=== PATIENT | female | born 1995 | race Caucasian/White ===

== ENCOUNTER 2018-11-21 13:01 | Emergency (ER) | payer OTHER ==
[2018-11-21 13:11] VITALS: RESP 16; TEMP 98.5
--- NOTE | 2018-11-21 14:47 | XR ---
EXAMINATION TYPE: XR tibia fibula LT DATE OF EXAM: 11/21/2018 COMPARISON: NONE HISTORY: Pain TECHNIQUE: Two views are submitted. FINDINGS: The osseous structures are intact. The joint spaces are preserved. IMPRESSION: 1. No acute osseous abnormality.
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
[2018-11-21 15:51] VITALS: BP 125/75; PULSE 70
== END 2018-11-21 15:40 | disposition home or self-care (01) ==
LOC: EC 13:01
DX: S80.12XA Contusion of left lower leg, initial encounter (principal); V49.40XA Driver injured in collision with unspecified motor vehicles in traffic accident, initial encounter; Y92.410 Unspecified street and highway as the place of occurrence of the external cause; Y93.89 Activity, other specified
CPT/HCPCS: 70450; 72125; 81025; 99284

== ENCOUNTER 2022-01-23 02:30 | Emergency (ER) | payer SELFPAY ==
[2022-01-23 02:54] VITALS: BP 108/68; PULSE 112; RESP 18; TEMP 98.6
--- NOTE | 2022-01-23 03:17 | XR ---
EXAMINATION TYPE: XR foot complete LT DATE OF EXAM: 01/23/2022 COMPARISON: NONE HISTORY: Pain TECHNIQUE: 3 views FINDINGS: The metatarsals are intact. The toes appear intact. No evidence of fracture nor dislocation . The middle toe is intact. IMPRESSION: Negative left foot exam. No fracture.
[2022-01-23] MEDS ORDERED: ACET/COD 300 MG/30 MG STARTER PACK 6 TAB BTL PO STA (03:34)
[2022-01-23] MEDS ORDERED: CLINDAMYCIN 150 MG CAP PO STA (03:34)
[2022-01-23] MEDS ORDERED: IBUPROFEN 600 MG STARTER PACK 4 TAB BTL PO STA (03:34)
--- NOTE | 2022-01-23 03:45 | ED ---
Extremity Problem HPI - General Chief complaint: Extremity Problem,Nontraumatic Stated complaint: left foot pain Time Seen by Provider: 01/23/22 03:03 Source: patient, RN notes reviewed Mode of arrival: ambulatory Limitations: no limitations - History of Present Illness Initial comments: This is a pleasant 26-year-old female who comes to the ER complaining of a recurrent infection to her left third toe. Since she went to a round of antibiotics about 3 weeks ago. Patient states the toe is now worsening again. She is describing some redness to the distal aspect of the toe. Patient was concerned because she started having a bit of a sore throat and some body aches earlier in the day and thought it might be related to the toe. Patient denying any shortness of breath or chest pain. No abdominal pain. No changes in urination or bowel movements. Patient states she did have one episode of vomiting. No current nausea. Patient has no history of immunosuppression. No diabetes. Patient states she was seen and assessed by a filter tip inspector for the toe previously. - Related Data Previous Rx's Medication Instructions Recorded Clindamycin [Cleocin] 450 mg PO Q8H #90 capsule 01/23/22 Ibuprofen [Motrin] 600 mg PO Q8HR PRN #30 tab 01/23/22 traMADol HCl [Ultram] 50 mg PO Q6H PRN #12 tab 01/23/22 Allergies Allergy/AdvReac Type Severity Reaction Status Date / Time No Known Allergies Allergy Verified 01/23/22 02:50 Review of Systems ROS Statement: Those systems with pertinent positive or pertinent negative responses have been documented in the HPI. ROS Other: All systems not noted in ROS Statement are negative. Past Medical History Past Medical History: No Reported History History of Any Multi-Drug Resistant Organisms: None Reported Past Surgical History: Tonsillectomy Past Psychological History: No Psychological Hx Reported Smoking Status: Never smoker Past Alcohol Use History: Occasional Past Drug Use History: None Reported General Exam Limitations: no limitations General appearance: alert, in no apparent distress Head exam: Present: atraumatic, normocephalic, normal inspection Eye exam: Present: normal appearance, PERRL, EOMI. Absent: scleral icterus, conjunctival injection, periorbital swelling ENT exam: Present: normal exam, mucous membranes moist Neck exam: Present: normal inspection. Absent: tenderness, meningismus, lymphadenopathy Respiratory exam: Present: normal lung sounds bilaterally. Absent: respiratory distress, wheezes, rales, rhonchi, stridor, chest wall tenderness, accessory muscle use Cardiovascular Exam: Present: regular rate (Heart rate 92/m as I'm assessing the patient.), normal rhythm, normal heart sounds. Absent: systolic murmur, diastolic murmur, rubs, gallop, clicks GI/Abdominal exam: Present: soft, normal bowel sounds. Absent: distended, tenderness, guarding, rebound, rigid Extremities exam: Present: full ROM, tenderness (Patient has minimal tenderness at distal aspect of the left third toe. Patient has some erythema near the lateral eponychial fold. No fluctuance. No lymphangitis. Erythema does not progress proximally past the toe. No evidence of foreign body or wound.), normal capillary refill. Absent: pedal edema, joint swelling, calf tenderness Back exam: Present: normal inspection. Absent: rash noted Neurological exam: Present: alert, oriented X3, CN II-XII intact Psychiatric exam: Present: normal affect, normal mood Skin exam: Present: warm, dry, intact, normal color, erythema (As above). Absent: rash, vesicles, petechiae, mottled, abrasion Course Vital Signs 01/23/22 02:50 Temperature 98.6 F Pulse Rate 112 H Respiratory 18 Rate Blood Pressure 108/68 O2 Sat by Pulse 97 Oximetry Medical Decision Making - Medical Decision Making Given the patient's presentation. I suspect the patient has developed mild viral syndrome. Patient being seen during an outbreak of influenza, RSV, and COVID-19. Will order viral testing. Patient's left third toe paronychia is very limited. This very unlikely to be causing any systemic symptoms. Patient's vital signs are stable, patient afebrile at the time I'm assessing her. Heart rate 92. Discussed treatment plan in detail with the patient. Discussed antibiotic therapy and follow-up with a filter tip inspector. Patient is already established with a filter tip inspector. I'm going to discharge the patient with the viral testing pending. Patient can call back for the results. Patient given pain medication for the left third toe. Patient was told to return to the ER for any signs or symptoms worsen. Told to return immediately if any other problems arise. All questions answered. Treatment plan discussed. Patient in agreement Every effort has been made to ensure accuracy of this dictation. However, due to the limitations of electronic medical records and dictation devices, errors in charting still occur. Supervising physician Dr. Miller - Radiology Data Radiology results: report reviewed, image reviewed Independent interpretation of the left foot x-ray by me reveals no acute pathology. Disposition Clinical Impression: Paronychia of third toe, left, Acute viral syndrome Disposition: HOME SELF-CARE Condition: Good Instructions (If sedation given, give patient instructions): Paronychia (ED), Viral Syndrome (ED) Additional Instructions: Take antibiotics as directed. Soak the foot in warm soapy water for 10-15 minutes at a time 4 times daily. Call at 8 AM to schedule follow-up appointment with a filter tip inspector. You can call back here for results of the viral swab testing Is patient prescribed a controlled substance at d/c from ED?: No Referrals: None,Stated [Primary Care Provider] - 1-2 days Time of Disposition: 03:40
== END 2022-01-23 03:54 | disposition home or self-care (01) ==
LOC: EC 02:30
DX: L03.032 Cellulitis of left toe (principal); B34.9 Viral infection, unspecified; Z20.822 Contact with and (suspected) exposure to COVID-19
CPT/HCPCS: 87636; 99283

== ENCOUNTER → 2022-09-27 | Outpatient (CLI) | payer BC ==
[2022-09-28 02:21] LABS: Basophils # (A) 0.05 X 10*3/uL (0.00-0.10); Basophils % (A) 0.7 %; Eosinophils # (A) 0.19 X 10*3/uL (0.04-0.35); Eosinophils % (A) 2.7 %; HCT 41.6 % (37.2-46.3); HGB 12.7 d/dL (12.0-15.0); Lymphocytes # (A) 1.65 X 10*3/uL (0.90-5.00); Lymphocytes % (A) 23.3 %; MCH 24.4 pg (27.0-32.0); MCHC 30.5 d/dL (32.0-37.0); MCV 79.8 FL (80.0-97.0); Mean Platelet Volume 12.2 FL (9.5-12.2); Monocytes # (A) 0.62 X 10*3/uL (0.20-1.00); Monocytes % (A) 8.8 %; NRBC Per 100 WBC 0 X 10*3/uL (0.00-0.01); Neutrophils # (A) 4.54 X 10*3/uL (1.80-7.70); Neutrophils % (A) 64.2 %; Platelet Count 248 X 10*3/uL (140-440); RBC 5.21 X 10*6/uL (4.10-5.20); WBC 7.07 X 10*3/uL (4.50-10.00)
[2022-09-28 03:16] LABS: Erythrocyte Sedimentation Rate 10 mm/Hr (0-20)
[2022-09-28 03:38] LABS: ALT 14 U/L (8-44); AST 19 U/L (13-35); Albumin 4.6 d/dL (3.8-4.9); Albumin/Globulin Ratio 1.84 Ratio (1.60-3.17); Alkaline Phosphatase 71 U/L (41-126); BUN/Creat Ratio 19.33 Ratio (12.00-20.00); Blood Urea Nitrogen 11.6 mg/dL (9.0-27.0); Calcium 9.5 mg/dL (8.7-10.3); Carbon Dioxide 23.4 mmol/L (21.6-31.8); Chloride 105 mmol/L (96-109); Globulin 2.5 d/dL (1.6-3.3); Glucose 72 mg/dL (70-110); Potassium 4.3 mmol/L (3.5-5.5); Rheumatoid Factor, Qnt <15 IU/mL (0-15); Sodium 141 mmol/L (135-145); Total Bilirubin 0.3 mg/dL (0.3-1.2); Total Protein 7.1 d/dL (6.2-8.2)
[2022-09-28 03:54] LABS: Gliadin AB IgA, Deaminated Negative (Negative); Gliadin AB IgA, Unit <0.5 U/mL; Gliadin AB IgG, Deaminated POSITIVE; Gliadin AB IgG, Unit 19.3 U/mL
[2022-09-28 05:59] LABS: Cyclic Citrull Pep IgG Unit <1.5 U/mL (<=3.9); Cyclic Citrullinated Pep IgG Negative
[2022-09-28 10:18] LABS: HLA B27 NEGATIVE
== END | disposition home or self-care (01) ==
LOC: LABWHC1 15:46
PROVIDERS: ATTEND Internal Medicine Rheumatology
DX: M79.89 Other specified soft tissue disorders (principal); M79.673 Pain in unspecified foot; M54.9 Dorsalgia, unspecified; M25.60 Stiffness of unspecified joint, not elsewhere classified
CPT/HCPCS: 36415; 80053; 83516; 83520; 85025; 85652; 86038; 86140; 86200; 86431; 86812

== ENCOUNTER 2024-02-10 02:38 | Emergency (ER) | payer BC ==
[2024-02-10 03:38] VITALS: BP 131/91; PULSE 80; RESP 18; TEMP 98.5
--- NOTE | 2024-02-10 03:43 | ED ---
Head Injury HPI - General Chief complaint: Head Injury Stated complaint: Head Injury, Headache Source: patient Mode of arrival: ambulatory - History of Present Illness Initial comments: Patient is a 28-year-old woman here to have evaluation for head injury on Sunday she had a stack of pans fall onto her head while she was working. The patient had no loss consciousness. Since that time she has had headache and some nausea. She denies any neurologic symptoms. MD Complaint: head injury -: days(s) Mechanism of Injury: work related injury Location: temporal Loss of Consciousness: no Previous Trauma to this Area: No Place: work Radiation: none Severity: moderate Quality: dull Consistency: constant Provoking factors: none known Associated Symptoms: nausea - Related Data Previous Rx's Medication Instructions Recorded Clindamycin [Cleocin] 450 mg PO Q8H #90 capsule 01/23/22 Ibuprofen [Motrin] 600 mg PO Q8HR PRN #30 tab 01/23/22 traMADol HCl [Ultram] 50 mg PO Q6H PRN #12 tab 01/23/22 Ondansetron Odt [Zofran ODT] 4 mg PO Q8HR PRN #10 tab 02/10/24 Allergies/Adverse reactions: Allergies Allergy/AdvReac Type Severity Reaction Status Date / Time No Known Allergies Allergy Verified 02/10/24 03:38 Review of Systems ROS Statement: Those systems with pertinent positive or pertinent negative responses have been documented in the HPI. ROS Other: All systems not noted in ROS Statement are negative. Constitutional: Denies: fever, weakness Eyes: Denies: vision change ENT: Denies: hearing loss Respiratory: Denies: dyspnea Cardiovascular: Denies: chest pain, syncope Gastrointestinal: Reports: nausea. Denies: abdominal pain, vomiting Genitourinary: Denies: dysuria, hematuria Musculoskeletal: Denies: back pain Neurological: Reports: headache. Denies: weakness, numbness, confusion, vertigo Hematological/Lymphatic: Denies: easy bleeding Past Medical History Past Medical History: No Reported History History of Any Multi-Drug Resistant Organisms: None Reported Past Surgical History: Tonsillectomy Past Psychological History: No Psychological Hx Reported Smoking Status: Never smoker Past Alcohol Use History: Occasional Past Drug Use History: None Reported General Exam General appearance: alert, in no apparent distress Head exam: Present: atraumatic, normocephalic Eye exam: Present: normal appearance, PERRL, EOMI. Absent: scleral icterus, conjunctival injection, nystagmus ENT exam: Present: normal oropharynx, mucous membranes moist, TM's normal bilaterally, normal external ear exam Neck exam: Present: normal inspection, full ROM. Absent: tenderness, meningismus Respiratory exam: Present: normal lung sounds bilaterally Cardiovascular Exam: Present: regular rate, normal rhythm Neurological exam: Present: alert, oriented X3, CN II-XII intact. Absent: motor sensory deficit Skin exam: Present: warm, dry, intact, normal color. Absent: rash Course Vital Signs 02/10/24 03:34 Temperature 98.5 F Pulse Rate 80 Respiratory 18 Rate Blood Pressure 131/91 O2 Sat by Pulse 100 Oximetry Medical Decision Making - Medical Decision Making Was pt. sent in by a medical professional or institution (SARAH Willams, TECHNICAL SUPPORT ANALYST, urgent care, hospital, or [facility]...) When possible be specific @ -[No] Did you speak to anyone other than the patient for history (EMS, parent, family, police, friend...)? What history was obtained from this source @ -[No] Did you review nursing and triage notes (agree or disagree)? Why? @ -[I reviewed and agree with nursing and triage notes] Were old charts reviewed (outside hosp., previous admission, EMS record, old EKG, old radiological studies, urgent care reports/EKG's, [facility] records)? Report findings @ -[No old charts were reviewed] Differential Diagnosis (chest pain, altered mental status, abdominal pain women, abdominal pain men, vaginal bleeding, weakness, fever, dyspnea, syncope, headache, dizziness, GI bleed, back pain, seizure, CVA, palpatations, mental health, musculoskeletal)? @ -[Differential Musculoskeletal Muscular strain, contusion, ligament sprain, fracture, arthritis, septic arthritis, bursitis, cellulitis, muscle spasm, nerve compression, DVT, arterial occlusion, herpes zoster, electrolyte abnormality, tumor.... This is not meant to be in all inclusive list EKG interpreted by me (3pts min.). @ -[As above] X-rays interpreted by me (1pt min.). @ -[None done] CT interpreted by me (1pt min.). @ -[ U/S interpreted by me (1pt. min.). @ -[None done] What testing was considered but not performed or refused? (CT, X-rays, U/S, labs)? Why? @ -[None] What meds were considered but not given or refused? Why? @ -[None] Did you discuss the management of the patient with other professionals (professionals i.e. , PA, TECHNICAL SUPPORT ANALYST, lab, RT, psych nurse, social media senior associate, main entree cook and cashier, teacher, sustainability officer, outsole caser)? Give summary @ -[No] Was smoking cessation discussed for >3mins.? @ -[No] Was critical care preformed (if so, how long)? @ -[No] Were there social determinants of health that impacted care today? How? (Homelessness, low income, unemployed, alcoholism, drug addiction, transportation, low edu. Level, literacy, decrease access to med. care, senior care, rehab)? @ -[No] Was there de-escalation of care discussed even if they declined (Discuss DNR or withdrawal of care, Hospice)? DNR status @ -[No] What co-morbidities impacted this encounter? (DM, HTN, Smoking, COPD, CAD, Cancer, CVA, ARF, Chemo, Hep., AIDS, mental health diagnosis, sleep apnea, morbid obesity)? @ -[None] Was patient admitted / discharged? Hospital course, mention meds given and route, prescriptions, significant lab abnormalities, going to OR and other pertinent info. @ -[Patient is a 28-year-old woman presenting days after having minor head injury. The patient having symptoms consistent with concussion. The patient at this point not manifesting evidence of intracranial hemorrhage. At this point we will have patient follow-up with neurology unless all of her symptoms resolved within the next 24 hours. Discussed appropriate return parameters. Undiagnosed new problem with uncertain prognosis? @ -[No] Drug Therapy requiring intensive monitoring for toxicity (Heparin, Nitro, Insulin, Cardizem)? @ -[No] Were any procedures done? @ -[No] Diagnosis/symptom? @ -[Acute concussion Acute, or Chronic, or Acute on Chronic? @ -[Acute Uncomplicated (without systemic symptoms) or Complicated (systemic symptoms)? @ -[Uncomplicated Side effects of treatment? @ -[No] Exacerbation, Progression, or Severe Exacerbation? @ -[No] Poses a threat to life or bodily function? How? (Chest pain, [place], [place], pneumonia, PE, COPD, DKA, ARF, appy, cholecystitis, CVA, Diverticulitis, Homicidal, Suicidal, threat to staff... and all critical care pts) @ -[No] All treatments are based on ideal body weight as in ED triage Disposition Clinical Impression: Closed head injury Disposition: HOME SELF-CARE Condition: Good Instructions (If sedation given, give patient instructions): Concussion (ED) Prescriptions: Ondansetron Odt [Zofran ODT] 4 mg PO Q8HR PRN #10 tab PRN Reason: Nausea Is patient prescribed a controlled substance at d/c from ED?: No Referrals: Gray Viveros MD [Primary Care Provider] - 1-2 days Noelle Alvarez MD [REFERRING] - 1-2 days
[2024-02-10] MEDS: ONDANSETRON ODT 4 MG TAB PO STA (04:09)
[2024-02-10] MEDS: IBUPROFEN 600 MG TAB PO STA (04:10)
[2024-02-10] MEDS: ACETAMINOPHEN TAB 325 MG TAB PO STA (04:10)
== END 2024-02-10 04:13 | disposition home or self-care (01) ==
LOC: EC 02:38
DX: S09.90XA Unspecified injury of head, initial encounter (principal); W19.XXXA Unspecified fall, initial encounter; Y99.0 Civilian activity done for income or pay
CPT/HCPCS: 99283